=== PATIENT | female | born 1990 | race Caucasian/White ===

== ENCOUNTER → 2019-10-24 14:52 | Outpatient (BNVA) | payer SELFPAY | PROVIDERS: Visit Provider Nurse Practitioner | DX: M25.511 Pain in right shoulder (principal) | CPT/HCPCS: 73030 ==

== ENCOUNTER 2020-01-17 14:19 | Emergency (ER) | payer SELFPAY ==
[2020-01-17 15:13] VITALS: BP 122/83; PULSE 79; RESP 16; TEMP 36.3; O2SAT 100; BMI 21.1
[2020-01-17] MEDS: LORazepam 0.5 mg Tablet PO (15:45)
--- NOTE | 2020-01-17 15:46 | W.ED.PSYCH ---
HPI - Psych General: Chief Complaint: Psychiatric Symptoms Stated Complaint: anxiety, depression Time Seen by Provider: 01/17/20 15:26 Source: patient Mode of arrival: ambulatory Limitations: no limitations History of Present Illness: HPI Narrative: 29-year-old female who states she is going through a divorce states she is practically seeing her mother now. States it has caused a lot of stress. She states she has been having some anxiety and anxiety attacks. She had increased depression as well. She adamantly denies any suicidality and has not had any thoughts of suicide she is states that she is depressed. She is called the [facility] and has an appointment February 22. She states that she just feels like she needs some sort of medication before then. Associated symptoms: Reports depression Review of Systems Const: Denies: fever(s), chills, body aches or change in appetite Eyes: Denies: blurry vision or eye discomfort ENMT: Denies: throat pain or dental pain Card: Denies: chest pain Resp: Denies: dyspnea GI: Denies: abdominal pain, nausea, vomiting or diarrhea : Denies: dysuria Musc: Denies: neck pain or back pain Skin/Breast: Denies: rash Neuro: Denies: headache(s) Psych: Reports: anxiety and depression Hugo/Lymph: Denies: easy bruising All/Imm: Denies: urticaria PFS ED PFSH: Social History (Updated 01/17/20 @ 15:24 by Lavelle Sanderson RN) Smoking and tobacco status: light tobacco smoker Alcohol intake: former Substance/Drug Use: never Current gender identity: Female Female Reproductive History: Date of last menstrual period: 01/17/20 Physical Exam Const: COMMON NORMALS: no acute distress, patient oriented x3 and healthy appearing HENMT: COMMON NORMALS: normocephalic and atraumatic HEAD & SCALP: normocephalic and atraumatic Eye: COMMON NORMALS: Equal, round and reactive pupils present and EOMs intact bilaterally PUPIL: Yes Equal, round and reactive pupils present Neck/C-Spine: COMMON NORMALS: full ROM and supple Chest: COMMONS NORMALS: normal inspection of the chest and normal palpation of entire chest wall Resp: COMMON NORMALS: normal respiratory effort, No retractions, No use of accessory muscles and clear to auscultation bilaterally AUSCULTATION: clear to auscultation bilaterally Cardio: COMMON NORMALS: regular rate, regular rhythm and No murmurs present (Cardio) RATE: regular rate RHYTHM: regular rhythm GI: COMMON NORMALS: Normal to inspection, nondistended, normoactive bowel sounds present, Soft to palpation, non-tender and no masses PALPATION: Yes Soft to palpation Extremity: COMMON NORMALS: normal to inspection and full ROM Neuro: COMMON NORMALS: patient oriented x3, moves all extremities and no focal motor deficits Psych: COMMON NORMALS: mental status grossly normal, Normal thought process present and cooperative THOUGHT PROCESS: Normal thought process present Skin: COMMON NORMALS: no rashes or lesions noted and no wounds GENERAL SKIN EXAM: no rashes or lesions noted MDM - Psych MDM Narrative: Medical decision making narrative: Patient presents with anxiety along with depression. She is not suicidal and does not require inpatient treatment. We will place her on Prozac until she gets her appointment with the [facility]. I did inform her if she has any worsening depression or suicidal thoughts at all she is to return to the ER immediately. She understands and agrees to this plan. I feel she is safe at home. Discharge Plan Discharge Patient Disposition: Home Clinical Impression: Acute anxiety Depression Qualifiers: Depression Type: unspecified Qualified Code(s): F32.9 - Major depressive disorder, single episode, unspecified Condition: Stable Prescriptions: New Prozac 20 mg capsule 20 mg PO DAILY Qty: 30 RF: 0 No Action naproxen 500 mg tablet 500 mg PO BID PRN (Reason: pain) Qty: 20 RF: 0 Discharge Orders: Discharge ED (Routine); Ordered 01/17/20 Ordered By: Kaitlin Gonzalez Discharge Diet: Advance as tolerated Discharge Activity: Resume usual activity Patient Instructions: Depression (ED), Anxiety (ED) Coding Level of Care Code ED Inspector [place] for Lily Arzate
== END 2020-01-17 15:54 | disposition home or self-care (01) ==
PROVIDERS: Emergency Provider Emergency Medicine
DX: F41.9 Anxiety disorder, unspecified (principal); F32.9 Major depressive disorder, single episode, unspecified; F17.210 Nicotine dependence, cigarettes, uncomplicated
CPT/HCPCS: 12345; 99281; 99283